=== PATIENT | female | born 1935 | race Caucasian/White ===

== ENCOUNTER 2016-10-25 05:31 | Day surgery (SDC) | payer MEDICARE, OTHER ==
[~2016-10-25] VITALS: Ht 156.2 cm; Wt 47.6 kg
[~2016-10-25 05:31] MED LIST: ALTACE1.25 MG PO; BENTYL10 MG PO; CO Q-10100 MG PO; DIFLUCAN50 MG PO; ESTRACE 0.5 MG0.5 MG PO; FLUNISOLIDE29 MCG NASAL; FOLIC ACID0.8 MG PO; INDERAL10 MG PO; KRILL OIL 1,001 EAC1 PO; MELATONIN 3 MG1 TAB PO; MULTI-MINERALS PO; OSTEO BI-FLEX1 EAC1 PO; POTASSIUM99 M1 PO; PREMARIN45 GM VG; SYNTHROID50 MCG PO; VITAMIN A10000 UNIT PO; VITAMIN B COMPL1 TAB PO; VITAMIN B-121000 MCG PO; VITAMIN B650 MG PO; VITAMIN C1000 MG PO; VITAMIN D5000 UNIT PO; VITAMIN E400 UNI2 PO; [UNRECOGNIZED DRUG - OTHER] PO; [UNRECOGNIZED DRUG - REMARK] PO
[2016-10-25 06:49] LABS: BASOPHILS 0.3 % (0.0-2.0); EOSINOPHILS 2.1 % (0-7); HEMATOCRIT 41.4 % (36.0-48.0); HEMOGLOBIN 13.8 g/dL (12-16); IMMATURE GRANULOCYTES 0.3 % (0-5); LYMPHOCYTES 23.7 % (15-50); MCH 31.9 pg (26.0-34.0); MCHC 33.3 g/dL (31.0-37.0); MCV 95.6 fL (80.0-100.0); MEAN PLATELET VOLUME 10.5 fL (7.4-10.4); MONOCYTES 12.3 % (2-11); NEUTROPHILS 61.3 % (40-80); PLATELET COUNT 224 10x3/uL (130-400); RBC 4.33 10x6/uL (4.00-5.40); RDW 13.4 % (11.5-14.5); WBC 3.9 10x3/uL (4.8-10.8)
[2016-10-25] MEDS ORDERED: [UNRECOGNIZED DRUG - REMARK] (06:56)
[2016-10-25] MEDS ORDERED: MIRALAX17 GM PO (06:58)
[2016-10-25] MEDS ORDERED: FIBER-LAX625 MG PO (06:59)
[2016-10-25 07:04] VITALS: BP 128/62; Ht 156.2 cm; Wt 47.6 kg
[2016-10-25 07:21] LABS: CALC OSMOLALITY 282 mosm/kg (275-300); CALCIUM 9.6 mg/dL (8.5-10.1); CARBON DIOXIDE 28.3 mmol/L (21.0-32.0); CHLORIDE - SERUM 105 mmol/L (98-107); CREATININE - SERUM 0.6 mg/dL (0.6-1.3); GLUCOSE 88 mg/dL (74-106); POTASSIUM - SERUM 4.1 mmol/L (3.5-5.1); SODIUM 142 mmol/L (136-145); UREA NITROGEN 14 mg/dL (7-18); eGFR NON AFRICAN AMERICAN > 90 mL/min (90-120)
[2016-10-25 07:27] LABS: INR 1.08 (0.85-1.17); PROTIME 13.9 SECONDS (11.6-15.0)
[2016-10-25] MEDS ORDERED: MEPERIDINE HCL50 MG PO (08:43)
--- NOTE | 2016-10-25 15:53 | OP ---
PATIENT NAME: STEFFEN URIBE MEDICAL RECORD: [id number] :31 LOCATION:D.OPS ADMISSION DATE: SURGEON: EDDIE TARANGO MD DATE OF OPERATION: 10/25/2016 SURGEON: Eddie Tarango MD. PREOPERATIVE DIAGNOSES: 1. Symptomatic cholelithiasis. 2. Congestive heart failure. POSTOPERATIVE DIAGNOSES: 1. Symptomatic cholelithiasis. 2. Congestive heart failure. PROCEDURE PERFORMED: Laparoscopic cholecystectomy. ANESTHESIA: General. COMPLICATIONS: None. SPECIMENS: Gallbladder. Case is clean contaminated. ESTIMATED BLOOD LOSS: 20 cc. OPERATIVE COURSE: After consent was obtained, the patient was taken to the operating room and placed in the supine position on the operating table. Next, general anesthesia was given via endotracheal intubation after a timeout was performed to confirm the correct patient and procedure. The abdomen was then prepped and draped in typical sterile fashion. Local anesthetic was injected just above the umbilicus. A stab incision was made with an 11-blade scalpel. Using a 5-mm bladeless optical trocar, the abdomen was entered under direct laparoscopic vision. Adequate pneumoperitoneum was achieved. The abdominal cavity was inspected. No evidence of bowel injury. No evidence of bleeding. The patient was then placed in the steep reverse Trendelenburg position. All remaining trocars were then placed, two 5-mm trocars in the right upper quadrant and 11-mm trocar in the subxiphoid position. This was all performed after administration of local anesthetic under direct laparoscopic vision. The fundus of the gallbladder was grasped and retracted cephalad. The infundibulum was grasped and retracted laterally. The peritoneum was incised using electrocautery. Once the peritoneum was incised, blunt dissection was performed with the [place] dissector until the critical view was obtained. The cystic duct lateral, cystic artery medial, intraoperative pictures were obtained, 2 clips were placed in the proximal cystic artery, 1 clip distal, 3 clips were placed in the proximal cystic duct, 1 clip distal. The duct and artery were then transected with laparoscopic Metzenbaum scissors. The remaining portion of the gallbladder was dissected off the liver bed using electrocautery. Once complete, it was grasped with the tenaculum and removed the 11-mm trocar and sent for permanent pathology. The operative site was then copiously irrigated and suctioned. Careful attention was paid to hemostasis, which was obtained using electrocautery. Again, at this time, the operative site was copiously irrigated and suctioned. The clips were inspected. There were [address] in the cystic duct, [address] in the cystic artery. At this time, the OPERATIVE REPORT [id number] RONYSTEFFEN QUIRINO remaining portion of the abdomen was inspected. There was no evidence of bowel injury. No evidence of bleeding, no evidence of bile leak. Next, all remaining instruments were removed. The abdomen was desufflated. Trocars were removed. Skin was closed with 4-0 Monocryl, Mastisol and Steri-Strips. At the end of the case, all needle and instrument counts were correct. No complications occurred. The patient was extubated and transferred to the PACU in stable condition. TRANSINT:[id number] Voice Confirmation ID: [id number] DOCUMENT ID: [id number] EDDIE TARANGO MD at 1553 CC: [id number] DICTATION DATE: 10/25/16 0849 SUPERVISOR TAPING: 10/25/16 1003 [facility] 10/25/16 [facility] [address] [place] [address]
== END 2016-10-25 12:35 | disposition home or self-care (01) ==
LOC: D.OPS 05:31 → D.PAN 08:00 → D.OPS 12:35
PROVIDERS: Anesthesiology
DX: K80.20 Calculus of gallbladder without cholecystitis without obstruction (principal); I50.9 Heart failure, unspecified; K21.9 Gastro-esophageal reflux disease without esophagitis